=== PATIENT | male | born 1950 | race Caucasian/White ===

== ENCOUNTER 2020-08-14 11:44 | Emergency (ER) | payer OTHER ==
[~2020-08-14] VITALS: Ht 167.6 cm; Wt 99.8 kg
[~2020-08-14 11:44] MED LIST: GLYBURIDE2.5 MG PO; L40 PO; LANTUS SOLOS100 U/M1 SC; LISINOPRIL AND1 TA2 PO; METFORMIN HCL1000 MG PO; TENORMIN25 MG PO; TRAMADOL HCL50 MG PO; TYLENOL WITH CO1 TA2 PO; ZOCOR40 MG PO
[2020-08-14 11:45] VITALS: Ht 167.6 cm; Wt 99.8 kg
[2020-08-14] MEDS ORDERED: PREDNISONE20 MG PO (13:31)
[2020-08-14 14:15] VITALS: BP 146/65
== END 2020-08-14 14:15 | disposition home or self-care (01) ==
LOC: ED 11:44
DX: J30.9 Allergic rhinitis, unspecified (principal); R09.81 Nasal congestion; I10 Essential (primary) hypertension; E11.9 Type 2 diabetes mellitus without complications; E78.00 Pure hypercholesterolemia, unspecified

== ENCOUNTER 2020-08-16 19:06 | Emergency (ER) | payer OTHER ==
[~2020-08-16] VITALS: Ht 167.6 cm; Wt 93.1 kg
[~2020-08-16 19:06] MED LIST changes: +PREDNISONE20 MG PO
[2020-08-16 19:28] VITALS: BP 150/75; Ht 167.6 cm; Wt 93.1 kg
== END 2020-08-16 22:32 | disposition home or self-care (01) ==
LOC: ED 19:06
DX: M79.661 Pain in right lower leg (principal); M79.662 Pain in left lower leg; I10 Essential (primary) hypertension; E11.40 Type 2 diabetes mellitus with diabetic neuropathy, unspecified; E78.00 Pure hypercholesterolemia, unspecified

== ENCOUNTER → 2020-11-09 | Outpatient (CLI) | payer OTHER | END | disposition home or self-care (01) | LOC: CT 08:29 | PROC: B42HZZZ Computerized Tomography (CT Scan) of Bilateral Lower Extremity Arteries (ICD-10-PCS; principal; 2020-11-09) | DX: M79.662 Pain in left lower leg (principal); M79.661 Pain in right lower leg | CPT/HCPCS: Q9967 ==